=== PATIENT | male | born 1980 | race Two or more races ===

== ENCOUNTER 2023-02-18 09:21 | Emergency (ER) | payer MEDICAID ==
[~2023-02-18] VITALS: Ht 167.6 cm; Wt 68.5 kg
[2023-02-18 09:28] VITALS: BP 138/91; PULSE 61; RESP 16; TEMP 97; O2SAT 98
[2023-02-18] MEDS ORDERED: LORATADINE 10 MG TAB PO ONE (09:50)
[2023-02-18] MEDS ORDERED: DIPH25TA53 PO (10:04)
[2023-02-18 10:07] LABS: BASOPHILS # (AUTO) 0.1 K/uL (0.00-0.22); BASOPHILS % (AUTO) 0.9 % (0.0-2.0); EOSINOPHILS # (AUTO) 0.4 K/uL (0-0.4); EOSINOPHILS % (AUTO) 4.8 % (0.0-4.0); HEMATOCRIT 43.5 % (36-52); HEMOGLOBIN 14.9 g/dL (12.0-18.0); LYMPHOCYTES # (AUTO) 3.4 K/uL (2.0-11.5); LYMPHOCYTES % (AUTO) 42.4 % (20.5-51.1); MEAN CORPUSCULAR HEMOGLOBIN 28 pg (27-31); MEAN CORPUSCULAR HGB CONC 34 g/dL (33-37); MEAN CORPUSCULAR VOLUME 82.8 fL (80-94); MONOCYTES # (AUTO) 0.7 K/uL (0.8-1.0); MONOCYTES % (AUTO) 8.3 % (1.7-9.3); NEUTROPHILS # (AUTO) 3.5 K/uL (1.8-7.7); NEUTROPHILS % (AUTO) 43.6 % (42.2-75.2); PLATELET COUNT (AUTO) 295 K/uL (140-450); RED BLOOD CELL COUNT(AUTO) 5.25 MIL/uL (4.20-6.10); RED CELL DISTRIBUTION WIDTH 14.3 % (11.6-13.7)
[2023-02-18 10:22] LABS: ANION GAP 10.4 (8-16); CALCIUM 8.5 mg/dL (8.5-10.1); CARBON DIOXIDE 30.1 mmol/L (21-32); CREATININE 0.7 mg/dL (0.6-1.3); POTASSIUM 3.5 mmol/L (3.5-5.1)
[2023-02-18 11:16] VITALS: BP 138/91; PULSE 61; RESP 16; TEMP 97; O2SAT 98
== END 2023-02-18 11:16 | disposition home or self-care (01) ==
LOC: MED 09:21 → EDBD 09:21 → MED 11:16
DX: R21 Rash and other nonspecific skin eruption (principal); Z79.899 Other long term (current) drug therapy
CPT/HCPCS: 36415; 80048; 85025; 99283